=== PATIENT | female | born 1990 | race Two or more races ===

== ENCOUNTER 2020-12-29 16:41 | Emergency (ER) | payer OTHER ==
[~2020-12-29] VITALS: Ht 175.3 cm; Wt 150.0 kg
[2020-12-29 16:57] VITALS: BP 114/81
== END 2020-12-29 17:12 ==
LOC: ER 16:41
DX: T18.9XXA Foreign body of alimentary tract, part unspecified, initial encounter (principal); X58.XXXA Exposure to other specified factors, initial encounter; Y93.89 Activity, other specified; Y92.89 Other specified places as the place of occurrence of the external cause; Y99.8 Other external cause status
CPT/HCPCS: 99283